=== PATIENT | female | born 1975 | race Caucasian/White ===

== ENCOUNTER → 2019-03-24 | Outpatient (RCR) | payer OTHER ==
[~2019-03-24] MED LIST: PRILOSEC40 MG PO
== END ==
LOC: OT 09:15
PROVIDERS: ATTEND Specialist
DX: S52.122A Displaced fracture of head of left radius, initial encounter for closed fracture (principal); S65.10 Unspecified injury of radial artery at wrist and hand level; M25.522 Pain in left elbow; M25.622 Stiffness of left elbow, not elsewhere classified; R53.1 Weakness

== ENCOUNTER 2019-04-22 08:57 | Outpatient (RCR) | payer OTHER | END 2019-04-24 | LOC: OT 08:57 | PROVIDERS: ATTEND Specialist | DX: S65.10 Unspecified injury of radial artery at wrist and hand level (principal); M25.522 Pain in left elbow; M25.622 Stiffness of left elbow, not elsewhere classified; R53.1 Weakness | CPT/HCPCS: 97139 ==